=== PATIENT | female | born 1985 | race Caucasian/White ===

== ENCOUNTER → 2016-12-06 | Outpatient (REF) | payer OTHER | LOC: M SFHCWAGY 14:55 | PROVIDERS: ATTEND Nurse Practitioner Family | DX: Z12.4 Encounter for screening for malignant neoplasm of cervix (principal) ==

== ENCOUNTER → 2017-01-10 | Outpatient (CLI) | payer OTHER ==
[~2017-01-10] MED LIST: BIOT50004 PO; IBUP200C PO; PROBCAP4 PO
[2017-01-10 18:03] LABS: CONTROL LINE HCG INT CTR LINE PRESENT
[2017-01-10 18:07] LABS: ANION GAP 6 MEQ/L (8-16); BLOOD UREA NITROGEN 16 MG/DL (7-18); CARBON DIOXIDE LEVEL 30 MEQ/L (21-32); CHLORIDE LEVEL 105 MEQ/L (98-107); CREATININE FOR GFR 0.69 MG/DL (0.55-1.02); GLOMERULAR FILTRATION RATE > 60.0 (>60); GLUCOSE, FASTING 71 MG/DL (70-105); POTASSIUM SERUM 4.3 MEQ/L (3.5-5.1); SODIUM LEVEL 141 MEQ/L (136-145)
[2017-01-10 18:59] LABS: MEAN CORPUSCULAR HEMOGLOBIN 30.3 pg (27.0-33.0); MEAN CORPUSCULAR HGB CONC 33.4 g/dl (32.0-36.5); MEAN CORPUSCULAR VOLUME 90.6 fl (80.0-96.0); WHITE BLOOD COUNT 8.7 K/mm3 (4.0-10.0)
== END ==
LOC: M SMT 13:31
PROVIDERS: ATTEND Specialist
DX: R39.15 Urgency of urination (principal); R10.30 Lower abdominal pain, unspecified

== ENCOUNTER → 2017-01-17 | Day surgery (SDC) | payer OTHER ==
[~2017-01-17] VITALS: Ht 160 cm; Wt 52.2 kg
[~2017-01-17] MED LIST changes: +LIDOCAINE 2% 5ML JELLY UROJET As Ordered ONE; +LIDOCAINE 2% INJ 100 MG/5 ML SDV (FOR ANES.) As Ordered ONE; +LIDOCAINE 2% MDV 20 ML VIAL As Ordered ONE; +LR 1,000 ML IV SCH; +METOCLOPRAMIDE INJ 10MG/2ML VIAL (J2765) As Ordered ONE; +METOCLOPRAMIDE INJ 10MG/2ML VIAL (J2765) IV PRN; +MIDAZOLAM INJ 2 MG/2 ML VIAL (J2250) As Ordered ONE; +ONDANSETRON 4MG/2ML VIAL (J2405) As Ordered ONE; +ONDANSETRON 4MG/2ML VIAL (J2405) IV PRN; +PERCOCET 5MG/325MG TAB PO PRN; +PROPOFOL 200 MG/20 ML VIAL As Ordered ONE; +fentaNYL 100 MCG/2 ML INJECTION (J3010) As Ordered ONE; +fentaNYL 100 MCG/2 ML INJECTION (J3010) IV PRN
[2017-01-17 14:41] LABS: CONTROL LINE UCG INT CTR LINE PRESENT
[2017-01-17 16:50] VITALS: BP 114/74
--- NOTE | 2017-01-17 22:47 | RO ---
DATE OF PROCEDURE: 01/17/2017 PREOPERATIVE DIAGNOSIS: Cystitis with complaints of severe urinary urgency, frequency, and suprapubic pain. POSTOPERATIVE DIAGNOSIS: Cystitis with complaints of severe urinary urgency, frequency, and suprapubic pain. PROCEDURE: Cystoscopy, hydrodistention, bladder biopsies, and intravesical lidocaine. SURGEON: Dr. Renee Leon ANESTHESIA: IV sedation. MEDICATIONS: Ancef 2 grams preoperatively. SPECIMENS: Bladder biopsies. FINDINGS: Total bladder capacity under anesthesia 1 liter with significant hyperemia but no glomerulations or ulcerations seen. INDICATIONS FOR PROCEDURE: The patient is a 31-year-old female with severe urinary urgency, frequency, and suprapubic pain since 08/04. She is urinating 8-9 times a day, but it was as much as every half an hour prior to [facility] and physical therapy. She now has a deep burning sensation also and nothing seems to help this. After discussing all different options, alternatives, risks, and benefits, it was decided to bring the patient to the operating room for further therapeutic and diagnostic treatment. All options, alternatives, risks and benefits were discussed and informed consent was obtained in both verbal and written form. DESCRIPTION OF PROCEDURE: The patient was brought into the operating room. Sequential compression devices were in place and preoperative antibiotics were given. IV sedation was then started. The patient was then placed in the lithotomy position and careful attention was paid that her pressure points were well padded and protected. Next, she was prepped and draped in the usual fashion. A 21-Albanian cystoscope was inserted, and the urethra was noted to be open without any evidence of lesions or strictures. Upon entering the bladder, both ureteral orifices were seen. There was no evidence of stones, erythematous patches, lesions or other significant abnormalities. Using normal saline, the bladder was distended and this was left distended for 10 minutes. Upon emptying the bladder, her total bladder capacity was 1 liter, and she did have hyperemia but no glomerulations or ulcerations were seen. A second hydrodistention was done but only to 800 mL. Next, biopsy forceps were placed and biopsies were taken of some of the hyperemic areas. These areas were then fulgurated. At the end of the procedure, her bladder was emptied and a red rubber catheter was placed. Next, 20 mL of 2% lidocaine was placed for postoperative pain control. The patient was returned to the recovery room in stable condition.
== END ==
LOC: M SDC 13:49
PROVIDERS: ATTEND Specialist
DX: N30.90 Cystitis, unspecified without hematuria (principal); R39.15 Urgency of urination; R35.0 Frequency of micturition; R10.30 Lower abdominal pain, unspecified; R39.82 Chronic bladder pain; Z79.899 Other long term (current) drug therapy
CPT/HCPCS: 52204; 52265; 84703; 88305; J0690; J2250; J2405; J2765; J3010

== ENCOUNTER → 2017-12-15 | Outpatient (REF) | payer OTHER ==
[2017-12-15 12:12] LABS: LUTEINIZING HORMONE 6.5 mIU/mL
[2017-12-15 12:12] LABS: PROGESTERONE 0.4 NG/ML
[2017-12-15 12:13] LABS: ESTRADIOL 147.8 PG/ML
== END ==
LOC: M LABDRAW1 11:39
DX: Z32.00 Encounter for pregnancy test, result unknown (principal)
CPT/HCPCS: 83002

== ENCOUNTER → 2017-12-30 | Outpatient (REF) | payer OTHER ==
[2017-12-30 12:18] LABS: HCG, SERUM QUANTITATIVE 2 MIU/ML
[2017-12-30 12:20] LABS: PROGESTERONE 6.9 NG/ML
== END ==
LOC: M LABDRAW1 11:13
DX: E28.9 Ovarian dysfunction, unspecified (principal)

== ENCOUNTER → 2018-01-02 | Outpatient (REF) | payer OTHER ==
[2018-01-02 12:34] LABS: PROGESTERONE 0.5 NG/ML
[2018-01-02 12:34] LABS: LUTEINIZING HORMONE 4.8 mIU/mL
== END ==
LOC: M LABDRAW1 08:03
DX: Z32.00 Encounter for pregnancy test, result unknown (principal)
CPT/HCPCS: 83002

== ENCOUNTER → 2018-01-06 | Outpatient (REF) | payer OTHER ==
[2018-01-06 12:50] LABS: LUTEINIZING HORMONE 8.5 mIU/mL
[2018-01-06 12:50] LABS: PROGESTERONE 0.4 NG/ML
== END ==
LOC: M LABDRAW1 11:42
DX: Z32.00 Encounter for pregnancy test, result unknown (principal)

== ENCOUNTER → 2018-01-08 | Outpatient (REF) | payer OTHER ==
[2018-01-08 11:47] LABS: PROGESTERONE 0.5 NG/ML
[2018-01-08 11:47] LABS: ESTRADIOL 229.4 PG/ML; LUTEINIZING HORMONE 4.7 mIU/mL
== END ==
LOC: M LABDRAW1 10:04
DX: Z32.00 Encounter for pregnancy test, result unknown (principal)
CPT/HCPCS: 83002

== ENCOUNTER → 2018-01-19 | Outpatient (REF) | payer OTHER ==
[2018-01-19 11:43] LABS: PROGESTERONE 15.8 NG/ML
[2018-01-19 11:45] LABS: ESTRADIOL 213.6 PG/ML
== END ==
LOC: M LABDRAW1 07:37
DX: Z31.41 Encounter for fertility testing (principal)
CPT/HCPCS: 84144

== ENCOUNTER → 2018-02-03 | Outpatient (REF) | payer OTHER ==
[2018-02-03 12:13] LABS: PROGESTERONE 1.2 NG/ML
[2018-02-03 12:14] LABS: ESTRADIOL 399.5 PG/ML
== END ==
LOC: M LABDRAW1 10:36
DX: Z32.00 Encounter for pregnancy test, result unknown (principal)

== ENCOUNTER → 2018-02-19 | Outpatient (REF) | payer OTHER ==
[2018-02-19 12:06] LABS: LUTEINIZING HORMONE 0.9 mIU/mL
[2018-02-19 12:08] LABS: HCG, SERUM QUANTITATIVE < 1.0 MIU/ML
[2018-02-19 12:09] LABS: FOLLICLE STIMULATING HORMONE 2.8 mIU/mL
[2018-02-19 12:09] LABS: ESTRADIOL 265.3 PG/ML
== END ==
LOC: M LAB REF 11:39
DX: E28.9 Ovarian dysfunction, unspecified (principal)

== ENCOUNTER → 2018-03-02 | Outpatient (REF) | payer OTHER ==
[2018-03-02 12:48] LABS: ESTRADIOL 27.9 PG/ML; LUTEINIZING HORMONE 1.4 mIU/mL
[2018-03-02 12:55] LABS: PROGESTERONE 0.3 NG/ML
== END ==
LOC: M LABDRAW1 09:12
DX: Z32.00 Encounter for pregnancy test, result unknown (principal)
CPT/HCPCS: 83002

== ENCOUNTER → 2018-03-17 | Outpatient (REF) | payer OTHER ==
[2018-03-17 10:42] LABS: ESTRADIOL 121.6 PG/ML; LUTEINIZING HORMONE 7.2 mIU/mL
[2018-03-17 10:42] LABS: PROGESTERONE 0.5 NG/ML
== END ==
LOC: M LABDRAW1 09:25
DX: Z32.00 Encounter for pregnancy test, result unknown (principal)

== ENCOUNTER → 2018-03-19 | Outpatient (REF) | payer OTHER ==
[2018-03-19 13:51] LABS: PROGESTERONE 0.4 NG/ML
[2018-03-19 13:52] LABS: LUTEINIZING HORMONE 3.6 mIU/mL
[2018-03-19 13:54] LABS: ESTRADIOL 679.7 PG/ML
== END ==
LOC: M LABDRAW1 08:43
DX: Z32.00 Encounter for pregnancy test, result unknown (principal)
CPT/HCPCS: 83002

== ENCOUNTER → 2018-03-27 | Outpatient (REF) | payer OTHER ==
[2018-03-27 11:22] LABS: ESTRADIOL 634.7 PG/ML
[2018-03-27 11:58] LABS: PROGESTERONE 61.1 NG/ML
== END ==
LOC: M LABDRAW1 08:57
DX: E28.9 Ovarian dysfunction, unspecified (principal)
CPT/HCPCS: 84443

== ENCOUNTER → 2018-04-03 | Outpatient (REF) | payer OTHER ==
[2018-04-03 10:13] LABS: HCG, SERUM QUANTITATIVE < 1.0 MIU/ML
[2018-04-03 10:19] LABS: PROGESTERONE 7.1 NG/ML
[2018-04-03 10:20] LABS: ESTRADIOL 69.8 PG/ML
== END ==
LOC: M LABDRAW1 09:36
DX: Z32.00 Encounter for pregnancy test, result unknown (principal)
CPT/HCPCS: 84702

== ENCOUNTER → 2018-04-06 | Outpatient (REF) | payer OTHER ==
[2018-04-06 10:23] LABS: LUTEINIZING HORMONE 5.4 mIU/mL
[2018-04-06 10:23] LABS: PROGESTERONE 0.5 NG/ML
[2018-04-06 10:24] LABS: ESTRADIOL 74.2 PG/ML; FOLLICLE STIMULATING HORMONE 8.4 mIU/mL
[2018-04-06 10:34] LABS: HCG, SERUM QUANTITATIVE < 1.0 MIU/ML
== END ==
LOC: M LABDRAW1 08:08
DX: E28.9 Ovarian dysfunction, unspecified (principal)

== ENCOUNTER → 2018-04-10 | Outpatient (REF) | payer OTHER ==
[2018-04-10 11:59] LABS: PROGESTERONE 0.5 NG/ML
[2018-04-10 11:59] LABS: ESTRADIOL 139.1 PG/ML; LUTEINIZING HORMONE 7.2 mIU/mL
== END ==
LOC: M LABDRAW1 10:42
DX: E28.9 Ovarian dysfunction, unspecified (principal)
CPT/HCPCS: 83002

== ENCOUNTER → 2018-04-13 | Outpatient (REF) | payer OTHER ==
[2018-04-13 13:20] LABS: PROGESTERONE 1.2 NG/ML
[2018-04-13 13:21] LABS: ESTRADIOL 746.8 PG/ML; LUTEINIZING HORMONE 14.9 mIU/mL
== END ==
LOC: M LABDRAW1 08:06
DX: E28.9 Ovarian dysfunction, unspecified (principal)
CPT/HCPCS: 83002

== ENCOUNTER → 2018-04-30 | Outpatient (REF) | payer OTHER ==
[2018-04-30 12:44] LABS: LUTEINIZING HORMONE 5.7 mIU/mL
[2018-04-30 12:44] LABS: PROGESTERONE 0.6 NG/ML
[2018-04-30 12:53] LABS: ESTRADIOL 43.1 PG/ML
== END ==
LOC: M LABDRAW1 11:43
DX: E28.9 Ovarian dysfunction, unspecified (principal)

== ENCOUNTER → 2018-05-06 | Outpatient (REF) | payer OTHER ==
[2018-05-06 12:30] LABS: LUTEINIZING HORMONE 6.2 mIU/mL
[2018-05-06 12:30] LABS: PROGESTERONE 0.3 NG/ML
[2018-05-06 12:31] LABS: ESTRADIOL 99.5 PG/ML
== END ==
LOC: M LABDRAW1 11:46
DX: E28.9 Ovarian dysfunction, unspecified (principal)

== ENCOUNTER → 2018-05-08 | Outpatient (REF) | payer OTHER ==
[2018-05-08 11:01] LABS: ESTRADIOL 347.5 PG/ML; LUTEINIZING HORMONE 8.1 mIU/mL
[2018-05-08 11:01] LABS: PROGESTERONE 0.4 NG/ML
== END ==
LOC: M LABDRAW1 10:07
DX: E28.9 Ovarian dysfunction, unspecified (principal)

== ENCOUNTER → 2018-05-26 | Outpatient (REF) | payer OTHER ==
[2018-05-26 10:27] LABS: HCG, SERUM QUANTITATIVE < 1.0 MIU/ML
[2018-05-26 10:42] LABS: LUTEINIZING HORMONE 5.4 mIU/mL
[2018-05-26 10:42] LABS: PROGESTERONE 0.4 NG/ML
[2018-05-26 10:43] LABS: ESTRADIOL 56.2 PG/ML; FOLLICLE STIMULATING HORMONE 7.7 mIU/mL
== END ==
LOC: M LABDRAW1 09:53
DX: E28.9 Ovarian dysfunction, unspecified (principal)
CPT/HCPCS: 83001

== ENCOUNTER → 2018-06-01 | Outpatient (REF) | payer OTHER ==
[2018-06-01 12:06] LABS: PROGESTERONE 0.7 NG/ML
[2018-06-01 12:06] LABS: LUTEINIZING HORMONE 5.5 mIU/mL
[2018-06-01 12:07] LABS: ESTRADIOL 312.5 PG/ML
== END ==
LOC: M LABDRAW1 07:31
DX: E28.9 Ovarian dysfunction, unspecified (principal)

== ENCOUNTER → 2018-06-25 | Outpatient (REF) | payer OTHER ==
[2018-06-25 13:41] LABS: PROGESTERONE 0.2 NG/ML
[2018-06-25 13:41] LABS: ESTRADIOL 166.7 PG/ML; LUTEINIZING HORMONE 1.5 mIU/mL
== END ==
LOC: M LABDRAW1 12:28
DX: E28.9 Ovarian dysfunction, unspecified (principal)

== ENCOUNTER → 2018-08-10 | Outpatient (REF) | payer OTHER ==
[2018-08-10 11:25] LABS: HCG, SERUM QUANTITATIVE < 1.0 MIU/ML
[2018-08-10 11:30] LABS: ESTRADIOL 79.4 PG/ML; FOLLICLE STIMULATING HORMONE 8.8 mIU/mL; LUTEINIZING HORMONE 5.7 mIU/mL
[2018-08-10 11:30] LABS: PROGESTERONE 0.5 NG/ML
[2018-08-10 15:06] LABS: GOLD SPEC TUBE RECIEVED
== END ==
LOC: M LABDRAW1 10:56
DX: E28.9 Ovarian dysfunction, unspecified (principal)
CPT/HCPCS: 83001

== ENCOUNTER → 2018-08-14 | Outpatient (REF) | payer OTHER ==
[2018-08-14 12:08] LABS: PROGESTERONE 0.6 NG/ML
[2018-08-14 12:08] LABS: ESTRADIOL 120.3 PG/ML; LUTEINIZING HORMONE 4.6 mIU/mL
== END ==
LOC: M LABDRAW1 11:40
DX: E28.9 Ovarian dysfunction, unspecified (principal)

== ENCOUNTER → 2018-08-25 | Outpatient (REF) | payer OTHER ==
[2018-08-25 12:01] LABS: PROGESTERONE 27.2 NG/ML
[2018-08-25 12:01] LABS: ESTRADIOL 230.8 PG/ML
== END ==
LOC: M LABDRAW1 10:56
DX: E28.9 Ovarian dysfunction, unspecified (principal)
CPT/HCPCS: 84443

== ENCOUNTER → 2018-10-15 | Outpatient (REF) | payer OTHER ==
[~2018-10-15] MED LIST changes: -IBUP200C PO; +IBUP200C25 PO; -LIDOCAINE 2% 5ML JELLY UROJET As Ordered ONE; -LIDOCAINE 2% INJ 100 MG/5 ML SDV (FOR ANES.) As Ordered ONE; -LIDOCAINE 2% MDV 20 ML VIAL As Ordered ONE; -LR 1,000 ML IV SCH; -METOCLOPRAMIDE INJ 10MG/2ML VIAL (J2765) As Ordered ONE; -METOCLOPRAMIDE INJ 10MG/2ML VIAL (J2765) IV PRN; -MIDAZOLAM INJ 2 MG/2 ML VIAL (J2250) As Ordered ONE; -ONDANSETRON 4MG/2ML VIAL (J2405) As Ordered ONE; -ONDANSETRON 4MG/2ML VIAL (J2405) IV PRN; -PERCOCET 5MG/325MG TAB PO PRN; -PROPOFOL 200 MG/20 ML VIAL As Ordered ONE; -fentaNYL 100 MCG/2 ML INJECTION (J3010) As Ordered ONE; -fentaNYL 100 MCG/2 ML INJECTION (J3010) IV PRN
[2018-10-17 15:11] LABS: HPV HYBRID CAPTURE II Negative (Negative)
== END ==
LOC: M SFHCWAGY 10:22
PROVIDERS: ATTEND Nurse Practitioner Family
DX: Z12.4 Encounter for screening for malignant neoplasm of cervix (principal)
CPT/HCPCS: 87624; G0123; G0463

== ENCOUNTER 2018-12-20 10:45 | Emergency (ER) | payer OTHER ==
[~2018-12-20] VITALS: Ht 160 cm; Wt 55.5 kg
[2018-12-20] MEDS ORDERED: NALT50TA4 PO (10:51)
[2018-12-20] MEDS ORDERED: FISH7.5C PO (10:51)
[2018-12-20 11:47] LABS: HEMATOCRIT 42.9 % (36.0-47.0); HEMOGLOBIN 14.3 g/dl (12.0-15.5); MEAN CORPUSCULAR HEMOGLOBIN 28.7 pg (27.0-33.0); MEAN CORPUSCULAR HGB CONC 33.3 g/dl (32.0-36.5); PLATELET COUNT, AUTOMATED 315 10^3/uL (150-450); RED BLOOD COUNT 4.99 10^6/uL (4.00-5.40); WHITE BLOOD COUNT 7.6 10^3/uL (4.0-10.0)
[2018-12-20 11:59] LABS: INR 1.01; PARTIAL THROMBOPLASTIN TIME 29.6 SECONDS (25.4-37.6); PROTHROMBIN TIME 13.4 SECONDS (12.1-14.4)
[2018-12-20] MEDS ORDERED: NS 1,000 ML IV ONE (12:00)
[2018-12-20 12:06] LABS: HCG, SERUM QUALITATIVE NEGATIVE (NEGATIVE)
[2018-12-20 13:16] VITALS: BP 128/64
--- NOTE | 2018-12-20 13:17 | REP ---
Clinical: Right pelvic pain. Technique: Transabdominal pelvic ultrasound followed by transvaginal examination for better evaluation of the endometrium and adnexa with color Doppler evaluation of the ovaries. Findings: Bladder is collapsed. Normal anteverted uterus measures 8.0 x 3.7 x 4.8 cm. The endometrial complex measures 3.6 mm thickness. No discrete uterine or endometrial abnormalities are appreciated. Bilateral ovaries are normal in appearance and vascularity without evidence for torsion. Right ovary measures 2.9 x 1.4 x 1.2 cm; R I = 0.61. Left ovary measures 4.3 x 2.5 x 2.6 cm with 2.9 cm hemorrhagic cyst; R I = 0.50. trace free fluid in left adnexa. Impression: 1. Essentially normal examination. No torsion. 2. Left hemorrhagic cyst. Electronically Signed by Ag Felix MD 12/20/2018 01:09 P
[2018-12-20] MEDS ORDERED: METAL LOCK LOOP XX ONE (14:03)
== END 2018-12-20 14:00 | disposition home or self-care (01) ==
LOC: M ED 10:45
DX: N93.8 Other specified abnormal uterine and vaginal bleeding (principal); N83.292 Other ovarian cyst, left side; Z87.42 Personal history of other diseases of the female genital tract; Z87.19 Personal history of other diseases of the digestive system

== ENCOUNTER → 2019-01-19 | Outpatient (REF) | payer OTHER ==
[~2019-01-19] MED LIST changes: +FISH7.5C PO; +NALT50TA4 PO
[2019-01-19 10:59] LABS: LUTEINIZING HORMONE 8.1 mIU/mL
[2019-01-19 11:32] LABS: ESTRADIOL 37.1 PG/ML; HCG, SERUM QUANTITATIVE < 1.0 MIU/ML
== END ==
LOC: M LABDRAW1 09:12
PROVIDERS: ATTEND Obstetrics & Gynecology Reproductive Endocrinology
DX: E28.9 Ovarian dysfunction, unspecified (principal)

== ENCOUNTER → 2019-01-22 | Outpatient (REF) | payer OTHER ==
[2019-01-22 12:32] LABS: HEMATOCRIT 41.7 % (36.0-47.0); HEMOGLOBIN 13.6 g/dl (12.0-15.5); MEAN CORPUSCULAR HGB CONC 32.6 g/dl (32.0-36.5); MEAN CORPUSCULAR VOLUME 88.9 fl (80.0-96.0); PLATELET COUNT, AUTOMATED 311 10^3/uL (150-450); RED BLOOD COUNT 4.69 10^6/uL (4.00-5.40)
[2019-01-22 12:46] LABS: ALT/SGPT 22 U/L (12-78); BILIRUBIN,TOTAL 0.6 MG/DL (0.2-1.0); BLOOD UREA NITROGEN 14 MG/DL (7-18); CARBON DIOXIDE LEVEL 28 MEQ/L (21-32); CHLORIDE LEVEL 106 MEQ/L (98-107); GLOMERULAR FILTRATION RATE > 60.0 (>60); GLUCOSE, FASTING 120 MG/DL (70-100); LUTEINIZING HORMONE 3.6 mIU/mL; POTASSIUM SERUM 3.6 MEQ/L (3.5-5.1); PROGESTERONE 0.36 NG/ML; PROLACTIN 17.9 NG/ML; SODIUM LEVEL 141 MEQ/L (136-145); TESTOSTERONE 26 NG/DL (14-76); TOTAL 25(OH) VITAMIN D 26.3 NG/ML (30.0-100.0)
[2019-01-22 12:53] LABS: RUBELLA IgG QUALITATIVE IMMUNE (IMMUNE)
[2019-01-22 12:55] LABS: HEPATITIS B SURFACE ANTIGEN NEGATIVE (NEGATIVE)
[2019-01-22 13:23] LABS: HIV 1&2 SCREEN CENTAUR NEGATIVE (NEGATIVE)
[2019-01-28 14:36] LABS: ANTI MULLERIAN HORMONE 3.29 ng/mL (.)
== END ==
LOC: M LABDRAW1 12:00
PROVIDERS: ATTEND Obstetrics & Gynecology Reproductive Endocrinology
DX: Z31.41 Encounter for fertility testing (principal); E28.9 Ovarian dysfunction, unspecified

== ENCOUNTER → 2019-01-25 | Outpatient (REF) | payer OTHER ==
[2019-01-25 11:53] LABS: ESTRADIOL 989.7 PG/ML; LUTEINIZING HORMONE 6.7 mIU/mL; PROGESTERONE 1.2 NG/ML
== END ==
LOC: M LABDRAW1 10:31
PROVIDERS: ATTEND Obstetrics & Gynecology Reproductive Endocrinology
DX: E28.9 Ovarian dysfunction, unspecified (principal)

== ENCOUNTER → 2019-02-10 | Outpatient (REF) | payer OTHER ==
[2019-02-10 12:20] LABS: HCG, SERUM QUANTITATIVE < 1.0 MIU/ML
[2019-02-10 12:28] LABS: PROGESTERONE 55.66 NG/ML
== END ==
LOC: M LABDRAW1 11:54
PROVIDERS: ATTEND Obstetrics & Gynecology Reproductive Endocrinology
DX: E28.9 Ovarian dysfunction, unspecified (principal)

== ENCOUNTER → 2019-04-04 | Outpatient (REF) | payer OTHER | LOC: M LAB REF 10:40 | PROVIDERS: ATTEND Physician Assistant | DX: R30.0 Dysuria (principal) ==

== ENCOUNTER → 2019-07-19 | Outpatient (REF) | payer OTHER ==
[2019-07-19 11:17] LABS: HCG, SERUM QUANTITATIVE < 1.0 MIU/ML
[2019-07-19 12:08] LABS: ESTRADIOL 71.5 PG/ML; FOLLICLE STIMULATING HORMONE 8.9 mIU/mL; LUTEINIZING HORMONE 4.8 mIU/mL; PROGESTERONE 0.52 NG/ML
== END ==
LOC: M LABDRAW1 10:47 → M LAB REF 10:47
PROVIDERS: ATTEND Obstetrics & Gynecology Reproductive Endocrinology
DX: E28.9 Ovarian dysfunction, unspecified (principal)

== ENCOUNTER → 2019-07-26 | Outpatient (REF) | payer OTHER ==
[2019-07-26 12:13] LABS: ESTRADIOL 184.2 PG/ML; LUTEINIZING HORMONE 5.8 mIU/mL; PROGESTERONE 0.21 NG/ML
== END ==
LOC: M LABDRAW1 07:32
PROVIDERS: ATTEND Obstetrics & Gynecology Reproductive Endocrinology
DX: E28.9 Ovarian dysfunction, unspecified (principal)

== ENCOUNTER → 2019-07-30 | Outpatient (REF) | payer OTHER ==
[2019-07-30 11:30] LABS: ESTRADIOL 267.1 PG/ML; LUTEINIZING HORMONE 35.9 mIU/mL; PROGESTERONE 1.27 NG/ML
== END ==
LOC: M LABDRAW1 07:29
PROVIDERS: ATTEND Obstetrics & Gynecology Reproductive Endocrinology
DX: E28.9 Ovarian dysfunction, unspecified (principal)

== ENCOUNTER → 2019-08-10 | Outpatient (REF) | payer OTHER ==
[2019-08-10 11:45] LABS: THYROID STIMULATING HORMONE 2.67 uIU/ML (0.358-3.740)
[2019-08-10 11:47] LABS: ESTRADIOL 382.2 PG/ML; PROGESTERONE 43.42 NG/ML
== END ==
LOC: M LABDRAW1 08:49
PROVIDERS: ATTEND Obstetrics & Gynecology Reproductive Endocrinology
DX: E28.9 Ovarian dysfunction, unspecified (principal)

== ENCOUNTER → 2019-08-16 | Outpatient (REF) | payer OTHER ==
[2019-08-16 11:13] LABS: HCG, SERUM QUANTITATIVE < 1.0 MIU/ML
[2019-08-16 11:20] LABS: PROGESTERONE 18.68 NG/ML
== END ==
LOC: M LABDRAW1 10:50
PROVIDERS: ATTEND Obstetrics & Gynecology Reproductive Endocrinology
DX: Z32.00 Encounter for pregnancy test, result unknown (principal)

== ENCOUNTER → 2019-12-27 | Outpatient (REF) | payer OTHER ==
[2019-12-27 10:49] LABS: HCG, SERUM QUANTITATIVE < 1.0 MIU/ML
[2019-12-27 10:51] LABS: PROGESTERONE 0.25 NG/ML
[2019-12-27 10:52] LABS: ESTRADIOL 67.5 PG/ML; LUTEINIZING HORMONE 6.6 mIU/mL
[2019-12-27 10:53] LABS: FOLLICLE STIMULATING HORMONE 6.5 mIU/mL
== END ==
LOC: M LABDRAW1 08:02
PROVIDERS: ATTEND Obstetrics & Gynecology Reproductive Endocrinology
DX: E28.9 Ovarian dysfunction, unspecified (principal)

== ENCOUNTER → 2020-02-16 | Outpatient (CLI) | payer OTHER ==
[2020-02-16 12:53] LABS: PROGESTERONE 0.52 NG/ML
== END ==
LOC: M WUC 09:35
PROVIDERS: ATTEND Obstetrics & Gynecology Reproductive Endocrinology
DX: E28.9 Ovarian dysfunction, unspecified (principal)

== ENCOUNTER → 2020-03-14 | Outpatient (CLI) | payer OTHER ==
[2020-03-14 11:17] LABS: ESTRADIOL 211.1 PG/ML; LUTEINIZING HORMONE 7.7 mIU/mL; PROGESTERONE 0.21 NG/ML
== END ==
LOC: M WUC 08:36
PROVIDERS: ATTEND Obstetrics & Gynecology Reproductive Endocrinology
DX: E28.9 Ovarian dysfunction, unspecified (principal)

== ENCOUNTER → 2020-03-23 | Outpatient (REF) | payer OTHER | LOC: M SFHCWAGY 17:16 | PROVIDERS: ATTEND Nurse Practitioner Family | DX: Z12.4 Encounter for screening for malignant neoplasm of cervix (principal) | CPT/HCPCS: G0123; G0463 ==

== ENCOUNTER → 2020-03-27 | Outpatient (CLI) | payer OTHER ==
[2020-03-27 11:10] LABS: ESTRADIOL 238.7 PG/ML; PROGESTERONE 37.19 NG/ML
== END ==
LOC: M WUC 08:15
PROVIDERS: ATTEND Obstetrics & Gynecology Reproductive Endocrinology
DX: E28.9 Ovarian dysfunction, unspecified (principal)

== ENCOUNTER → 2020-04-03 | Outpatient (CLI) | payer OTHER ==
[2020-04-03 10:24] LABS: HCG, SERUM QUANTITATIVE < 1.0 MIU/ML
== END ==
LOC: M WUC 08:06
PROVIDERS: ATTEND Obstetrics & Gynecology Reproductive Endocrinology
DX: Z32.00 Encounter for pregnancy test, result unknown (principal)

== ENCOUNTER → 2020-04-20 | Outpatient (CLI) | payer OTHER ==
[2020-04-20 09:59] LABS: HEMATOCRIT 41.3 % (36.0-47.0); HEMOGLOBIN 13.5 g/dl (12.0-15.5); MEAN CORPUSCULAR HEMOGLOBIN 29.2 pg (27.0-33.0); MEAN CORPUSCULAR HGB CONC 32.7 g/dl (32.0-36.5); MEAN CORPUSCULAR VOLUME 89.2 fl (80.0-96.0); PLATELET COUNT, AUTOMATED 297 10^3/uL (150-450); RED BLOOD COUNT 4.63 10^6/uL (4.00-5.40)
[2020-04-20 10:26] LABS: ALBUMIN 3.7 GM/DL (3.2-5.2); ALT/SGPT 20 U/L (12-78); BILIRUBIN,TOTAL 0.7 MG/DL (0.2-1.0); BLOOD UREA NITROGEN 11 MG/DL (7-18); CARBON DIOXIDE LEVEL 26 MEQ/L (21-32); CHLORIDE LEVEL 108 MEQ/L (98-107); GLOMERULAR FILTRATION RATE > 60.0 (>60); GLUCOSE, FASTING 76 MG/DL (70-100); HCG, SERUM QUANTITATIVE < 1.0 MIU/ML; POTASSIUM SERUM 4.2 MEQ/L (3.5-5.1); SODIUM LEVEL 141 MEQ/L (136-145)
== END ==
LOC: M WUC 08:04
PROVIDERS: ATTEND Obstetrics & Gynecology Reproductive Endocrinology
DX: Z01.812 Encounter for preprocedural laboratory examination (principal)

== ENCOUNTER → 2020-04-23 | Outpatient (CLI) | payer OTHER | LOC: M LABSMTC 10:49 | PROVIDERS: ATTEND Obstetrics & Gynecology Reproductive Endocrinology | DX: Z20.828 Contact with and (suspected) exposure to other viral communicable diseases (principal) | CPT/HCPCS: C9803; U0003 ==

== ENCOUNTER → 2020-06-27 | Outpatient (CLI) | payer OTHER ==
--- NOTE | 2020-06-27 07:46 | REPVR ---
PROCEDURE INFORMATION: Exam: US Pelvis, Transvaginal Exam date and time: 06/27/2020 7:24 AM Age: 34 years old Clinical indication: Condition or disease; Other: Ovarian dysfunction TECHNIQUE: Imaging protocol: Real-time transvaginal pelvic ultrasound with image documentation. Transvaginal imaging was used for better evaluation of the endometrium and adnexa. COMPARISON: US PELVIC NON-OB COMPLETE 12/20/2018 12:36 PM FINDINGS: Uterus/cervix: The uterus measures 8.0 x 4.4 x 3.3 cm. There is a small faint hypoechogenicity in the posterior mid uterine body measuring 0.6 x 0.8 x 0.4 centimetres. The endometrium is normal in thickness measuring 4 mm. Right adnexa: The right ovary measures 4.0 x 2.6 x 2.1 cm containing multiple follicles the largest measuring 1.2 by 0.8 x 0.9 centimetres. Left adnexa: The left ovary measures 3.3 x 2.5 x 2.0 cm containing multiple subcentimeter follicles. Free fluid: None. IMPRESSION: 1. 0.6 x 0.8 x 0.4 cm posterior mid uterine body intramural hypoechoic lesions statistically likely fibroids. 2. Unremarkable ovaries containing small follicles. Electronically signed by: Renny Sen On 06/27/2020 07:45:59 AM
[2020-06-27 08:19] LABS: HCG, SERUM QUANTITATIVE < 1.0 MIU/ML
[2020-06-27 10:46] LABS: ESTRADIOL 91.2 PG/ML; LUTEINIZING HORMONE 4.3 mIU/mL; PROGESTERONE 0.45 NG/ML
[2020-06-27 10:47] LABS: FOLLICLE STIMULATING HORMONE 5.2 mIU/mL
== END ==
LOC: M RAD 06:21
PROVIDERS: ATTEND Obstetrics & Gynecology Reproductive Endocrinology
DX: E28.9 Ovarian dysfunction, unspecified (principal)

== ENCOUNTER → 2020-07-04 | Outpatient (CLI) | payer OTHER ==
--- NOTE | 2020-07-04 08:24 | REPVR ---
PROCEDURE INFORMATION: Exam: US Pelvis, Transvaginal US Duplex Artery or Vein of the Abdominal and/or Reproductive Organs, Limited Ovaries Exam date and time: 07/04/2020 8:10 AM Age: 34 years old Clinical indication: Screening exam; Follicle study; Additional info: Infertility TECHNIQUE: Imaging protocol: Real-time transvaginal pelvic ultrasound with image documentation. Transvaginal imaging was used for better evaluation of the endometrium and adnexa. Real-time duplex ultrasound scan of the arterial or venous flow with greenebrg scale, color Doppler flow and spectral waveform analysis with image documentation. Limited duplex exam focused on the ovaries. Duplex images required to evaluate for torsion and other vascular conditions. COMPARISON: Transvaginal NON- US 06/27/2020 7:07 AM FINDINGS: Uterus/cervix: The uterus measures 6.9 x 3.1 x 4.3 cm. It again contains a hypoechoic intramural lesion posteriorly measuring 7.7 x 3.3 x 5.2 mm, again likely a fibroid. The endometrium measures 9.1 mm in thickness. Right adnexa: The right ovary measures 3.6 x 1.7 x 4.3 cm. It contains a dominant follicle measuring 13 x 10 mm, as well as multiple follicles measuring between 5 and 6 mm. There is normal internal arterial flow to the ovary. Peak systolic velocity 18.3 cm/s, end-diastolic velocity 6.6 cm/s, resistive index 0.64. Left adnexa: The left ovary measures 2.8 x 2.2 x 2.4 cm. It contains multiple follicles measuring between 3 and 7 mm. There is normal internal arterial flow to the ovary. Peak systolic velocity 8.6 cm/s, end-diastolic velocity 4.2 cm/s, resistive index 0.51. Free fluid: There is small to moderate free fluid in the pelvis. IMPRESSION: 1. 8 mm uterine lesion, likely a fibroid, similar to 06/27/20. 2. Bilateral ovarian follicles as described. 3. Normal internal arterial flow to both ovaries. 4. Small to moderate free fluid. Electronically signed by: Kaushik Song On 07/04/2020 08:24:21 AM
[2020-07-04 13:21] LABS: ESTRADIOL 32.1 PG/ML; LUTEINIZING HORMONE 21.9 mIU/mL; PROGESTERONE 3.07 NG/ML
== END ==
LOC: M RAD 07:21
PROVIDERS: ATTEND Obstetrics & Gynecology Reproductive Endocrinology
DX: E28.9 Ovarian dysfunction, unspecified (principal); N85.9 Noninflammatory disorder of uterus, unspecified; N83.01 Follicular cyst of right ovary; N83.02 Follicular cyst of left ovary

== ENCOUNTER → 2020-07-19 | Outpatient (CLI) | payer OTHER ==
--- NOTE | 2020-07-19 07:53 | REPVR ---
PROCEDURE INFORMATION: Exam: US Pelvis, Transvaginal Exam date and time: 07/19/2020 6:49 AM Age: 34 years old Clinical indication: Screening exam; Follicle study; Additional info: Ovarian dysfunction TECHNIQUE: Imaging protocol: Real-time transvaginal pelvic ultrasound with image documentation. Transvaginal imaging was used for better evaluation of the endometrium and adnexa. COMPARISON: 1. Transvaginal NON- US 06/27/2020 7:07 AM 2. US - STRAP STITCHER 07/04/2020 7:40:13 AM FINDINGS: Uterus/cervix: Uterus measures 7.9 x 2.7 x 4.5 cm and is stable in appearance with a small posterior intramural fibroid measuring 7 x 4 x 7 mm. The endometrial stripe appears thinner when compared to the most recent examination, now measuring 4-5 mm, with a homogeneous hyperechoic pattern. Right adnexa: Right ovary measures 4.4 x 3.3 x 2.6 cm and contains a 10 x 7 mm follicle in addition to 11 subcentimeter follicles in the 3-8 mm range. There is also a 12 x 9 x 10 mm heterogeneous structure, likely corpus luteum. Left adnexa: Left ovary measures 3.3 x 2.6 x 2.4 cm and contains a 10 x 6 mm follicle in addition to 16 subcentimeter follicles in the 2-9 mm range. Intraperitoneal space: No evidence of free fluid. IMPRESSION: 1. Stable appearance of the uterus with a subcentimeter posterior intramural fibroid. 2. The endometrial stripe is thinner, now measuring 4-5 mm, with a homogeneous hyperechoic pattern. 3. Bilateral ovarian follicles, as described. Probable corpus luteum right ovary. Electronically signed by: Ag Kimble On 07/19/2020 07:53:22 AM
[2020-07-19 08:00] LABS: HCG, SERUM QUANTITATIVE < 1.0 MIU/ML
[2020-07-19 12:34] LABS: ESTRADIOL 53.1 PG/ML; LUTEINIZING HORMONE 7.1 mIU/mL; PROGESTERONE 0.41 NG/ML
[2020-07-19 12:35] LABS: FOLLICLE STIMULATING HORMONE 7.9 mIU/mL
== END ==
LOC: M RAD 06:20
PROVIDERS: ATTEND Obstetrics & Gynecology Reproductive Endocrinology
DX: E28.9 Ovarian dysfunction, unspecified (principal); D25.1 Intramural leiomyoma of uterus

== ENCOUNTER → 2020-07-25 | Outpatient (CLI) | payer OTHER ==
--- NOTE | 2020-07-25 07:59 | REPVR ---
PROCEDURE INFORMATION: Exam: US Pelvis, Transvaginal Exam date and time: 07/25/2020 7:43 AM Age: 34 years old Clinical indication: Screening exam; Follicle study; Additional info: Infertility TECHNIQUE: Imaging protocol: Real-time transvaginal pelvic ultrasound with image documentation. Transvaginal imaging was used for better evaluation of the endometrium and adnexa. COMPARISON: Transvaginal NON- US 07/19/2020 6:29 AM FINDINGS: Uterus/cervix: The uterus is anteverted and measures 7.5 x 3.2 x 3.8 cm. The endometrial stripe measures 5 mm in thickness. There is a 0.5 x 0.6 x 0.5 cm hypoechoic area posteriorly in the myometrium, unchanged and probably representing a small intramural fibroid. Right adnexa: The right ovary measures 3.4 x 1.9 x 2.6 cm. Multiple follicles are seen, including follicles measuring 14 x 10 mm, 14 x 10 mm, and 12 x 11 mm and 3 additional follicles in the range of 5-6 mm. Left adnexa: The left ovary measures 3.4 x 2.3 x 3.1 cm. Multiple follicles are seen, including follicles measuring 13 x 11 mm and 13 x 12 mm and 8 follicles ranging from 3-9 mm. Intraperitoneal space: No significant fluid is seen in the cul-de-sac. IMPRESSION: Multiple ovarian follicles bilaterally, including 3 follicles above 10 mm in the right ovary and 2 follicles above 10 mm in the left ovary. Electronically signed by: Karen Meadows On 07/25/2020 07:58:55 AM
[2020-07-25 08:39] LABS: ESTRADIOL 145.7 PG/ML; LUTEINIZING HORMONE 14.8 mIU/mL; PROGESTERONE 1.75 NG/ML
== END ==
LOC: M RAD 06:58
PROVIDERS: ATTEND Obstetrics & Gynecology Reproductive Endocrinology
DX: E28.9 Ovarian dysfunction, unspecified (principal); N83.01 Follicular cyst of right ovary; N83.02 Follicular cyst of left ovary

== ENCOUNTER → 2020-07-27 | Outpatient (CLI) | payer OTHER ==
--- NOTE | 2020-07-27 08:08 | REPVR ---
PROCEDURE INFORMATION: Exam: US Pelvis, Transvaginal Exam date and time: 07/27/2020 7:33 AM Age: 34 years old Clinical indication: Screening exam; Follicle study; Additional info: Infertility TECHNIQUE: Imaging protocol: Real-time transvaginal pelvic ultrasound with image documentation. Transvaginal imaging was used for better evaluation of the endometrium and adnexa. COMPARISON: Transvaginal NON- US 07/25/2020 7:24 AM FINDINGS: Uterus/cervix: Uterus is stable in size, shape and echotexture measuring 7.5 x 3.2 x 4.4 cm. Subcentimeter posterior intramural fibroid again noted. The endometrium measures 7 mm in thickness and demonstrates a triple line pattern with a central hyperechoic line surrounded by two hypoechoic layers. Cervix is unremarkable. Right adnexa: Right ovary measures 3.9 x 2.6 x 2.7 cm with enlarging dominant follicles. The 3 largest follicles measure 13 x 9 mm, 22 x 19 mm and 13 x 10 mm respectively. There are 3 subcentimeter follicles measuring 3-6 mm. Left adnexa: Left ovary measures 5.4 x 2.6 x 2.3 cm with enlarging dominant follicles. The 2 largest follicles measure 18 x 16 mm and 20 x 15 mm respectively. There are 5 subcentimeter follicles ranging in size from 4-8 mm. Intraperitoneal space: No evidence of free fluid. IMPRESSION: 1. Endometrium measures 7 mm in thickness with a triple line pattern. 2. Multiple bilateral ovarian follicles with enlarging dominant follicles. There are 3 follicles above 10 mm in the right ovary and 2 follicles above 10 mm in the left ovary. Electronically signed by: Ag Kimble On 07/27/2020 08:08:00 AM
[2020-07-27 14:00] LABS: LUTEINIZING HORMONE 8.7 mIU/mL; PROGESTERONE 0.83 NG/ML
== END ==
LOC: M RAD 06:56
PROVIDERS: ATTEND Obstetrics & Gynecology Reproductive Endocrinology
DX: E28.9 Ovarian dysfunction, unspecified (principal)

== ENCOUNTER → 2020-08-08 | Outpatient (CLI) | payer OTHER ==
[2020-08-08 09:08] LABS: PROGESTERONE 12.61 NG/ML
== END ==
LOC: M LAB 06:47
PROVIDERS: ATTEND Obstetrics & Gynecology Reproductive Endocrinology
DX: E28.9 Ovarian dysfunction, unspecified (principal)

== ENCOUNTER → 2020-08-14 | Outpatient (CLI) | payer OTHER ==
[2020-08-14 07:33] LABS: HCG, SERUM QUANTITATIVE < 1.0 MIU/ML
[2020-08-14 11:35] LABS: PROGESTERONE 0.84 NG/ML
== END ==
LOC: M LAB 06:46
PROVIDERS: ATTEND Obstetrics & Gynecology Reproductive Endocrinology
DX: Z32.00 Encounter for pregnancy test, result unknown (principal)

== ENCOUNTER → 2022-03-14 | Outpatient (REF) | payer OTHER | LOC: M PLALAB 10:47 | PROVIDERS: ATTEND Advanced Practice Midwife | DX: Z53.9 Procedure and treatment not carried out, unspecified reason (principal) ==

== ENCOUNTER → 2024-04-01 | Outpatient (REF) | payer OTHER ==
[~2024-04-01] MED LIST changes: -BIOT50004 PO; +BIOT5CAP8 PO; +FISH10005 PO; -FISH7.5C PO
== END ==
LOC: M PLALAB 10:48
PROVIDERS: ATTEND Advanced Practice Midwife
DX: Z01.419 Encounter for gynecological examination (general) (routine) without abnormal findings (principal); Z12.4 Encounter for screening for malignant neoplasm of cervix; Z11.51 Encounter for screening for human papillomavirus (HPV)

== ENCOUNTER → 2024-04-01 | Outpatient (CLI) | payer OTHER | LOC: M WHC 13:09 | PROVIDERS: ATTEND Advanced Practice Midwife | DX: Z12.31 Encounter for screening mammogram for malignant neoplasm of breast (principal) | CPT/HCPCS: 77063; 77067; G0123 ==

== ENCOUNTER 2024-08-13 08:23 | Emergency (ER) | payer OTHER ==
[~2024-08-13] VITALS: Ht 160 cm; Wt 57.1 kg
[2024-08-13 10:22] LABS: BASO # 0.1 10^3/uL (0.0-0.2); BASO % 0.8 % (0.0-1.0); EOS # 0.1 10^3/uL (0.0-0.5); EOS % 0.9 % (0.0-3.0); HEMATOCRIT 44.2 % (36.0-47.0); HEMOGLOBIN 14.9 g/dl (12.0-15.5); LYMPH # 2.3 10^3/uL (1.5-5.0); LYMPH % 34.9 % (24.0-44.0); MEAN CORPUSCULAR HEMOGLOBIN 30.5 pg (27.0-33.0); MEAN CORPUSCULAR HGB CONC 33.7 g/dl (32.0-36.5); MEAN CORPUSCULAR VOLUME 90.4 fl (80.0-96.0); MONO # 0.6 10^3/uL (0.0-0.8); MONO % 8.8 % (2.0-8.0); NEUTROPHILS # 3.6 10^3/uL (1.5-8.5); NEUTROPHILS % 54.4 % (36.0-66.0); PLATELET COUNT, AUTOMATED 288 10^3/uL (150-450); RED BLOOD COUNT 4.89 10^6/uL (4.00-5.40); WHITE BLOOD COUNT 6.6 10^3/uL (4.0-10.0)
[2024-08-13 10:59] LABS: BLOOD UREA NITROGEN 15 MG/DL (9-23); CALCIUM LEVEL 9.4 MG/DL (8.5-10.1); CARBON DIOXIDE LEVEL 27 MMOL/L (20-31); CHLORIDE LEVEL 111 MMOL/L (98-107); CREATININE FOR GFR 0.71 MG/DL (0.55-1.30); GLOMERULAR FILTRATION RATE > 60.0 (>58); GLUCOSE, FASTING 68 MG/DL (60-100); POTASSIUM SERUM 4.5 MMOL/L (3.5-5.1); SODIUM LEVEL 142 MMOL/L (136-145)
[2024-08-13 11:04] LABS: HCG, SERUM QUALITATIVE NEGATIVE (NEGATIVE)
[2024-08-13] MEDS: ACETAMINOPHEN 325 MG TAB PO ONE (11:38)
[2024-08-13 12:33] VITALS: TEMP 98
[2024-08-13] MEDS ORDERED: MECL-209 PO (15:37)
[2024-08-13 15:38] VITALS: BP 125/84; O2SAT 95
== END 2024-08-13 15:50 | disposition left against medical advice (07) ==
LOC: M ED 10:10
DX: R42 Dizziness and giddiness (principal); F41.9 Anxiety disorder, unspecified; Z91.048 Other nonmedicinal substance allergy status; Z79.1 Long term (current) use of non-steroidal anti-inflammatories (NSAID); Z79.899 Other long term (current) drug therapy; Z53.9 Procedure and treatment not carried out, unspecified reason

== ENCOUNTER → 2024-12-28 | Outpatient (CLI) | payer OTHER ==
[~2024-12-28] MED LIST changes: +MECL-209 PO
== END ==
LOC: M WUC 14:23
PROVIDERS: ATTEND Physician Assistant
DX: M25.011 Hemarthrosis, right shoulder (principal)

== ENCOUNTER → 2025-05-06 | Outpatient (CLI) | payer OTHER | LOC: M WHC 11:16 | PROVIDERS: ATTEND Advanced Practice Midwife | DX: R92.8 Other abnormal and inconclusive findings on diagnostic imaging of breast (principal); R92.30 Dense breasts, unspecified ==

== ENCOUNTER → 2025-05-19 | Outpatient (CLI) | payer OTHER | LOC: M WHC 09:40 | PROVIDERS: ATTEND Advanced Practice Midwife | DX: Z53.9 Procedure and treatment not carried out, unspecified reason (principal) ==